=== PATIENT | male | born 1995 | race African-American/Black ===

== ENCOUNTER 2022-01-23 05:58 | Day surgery (SDC) | payer OTHER ==
[2022-01-22 11:43] VITALS: BMI 26.2
[2022-01-23] MEDS ORDERED: Midazolam HCl 2 mg/2 ml Vial ONE (06:45)
[2022-01-23] MEDS ORDERED: fentaNYL Citrate/PF 100 MCG/2 ML SYRINGE ONE (06:45)
[2022-01-23] MEDS ORDERED: CEFAZOLIN 2 GM VIAL ONE (07:23)
[2022-01-23] MEDS ORDERED: Sodium Chloride 0.9% 100 ML ONE (07:23)
[2022-01-23] MEDS ORDERED: Ondansetron PF 4 MG/2 ML Vial ONE (07:53)
[2022-01-23] MEDS ORDERED: Dexamethasone 20 MG/5 ML VIAL ONE (07:53)
[2022-01-23] MEDS ORDERED: PROPOFOL 200 MG/20 ML VIAL ONE (07:53)
[2022-01-23] MEDS ORDERED: Bupivacaine PF 0.5% 30 ML VIAL ONE (08:15)
[2022-01-23] MEDS ORDERED: Fentanyl 100 MCG/2 ML VIAL ONE (09:26)
[2022-01-23] MEDS ORDERED: HYDROcodone/Acetaminophen 5/325 mg Tablet ONE (10:33)
[2022-01-23] MEDS ORDERED: Morphine 2 MG/ML VIAL ONE (11:06)
[2022-01-23] MEDS ORDERED: Ketorolac Tromethamine 30 MG/ML VIAL ONE (11:38)
== END 2022-01-23 12:05 ==
LOC: SDC 05:58
PROVIDERS: ATTEND Orthopaedic Surgery
PROC: 0SSN04Z Reposition Left Metatarsal-Phalangeal Joint with Internal Fixation Device, Open Approach (ICD-10-PCS; principal; 2022-01-23)
DX: M24.475 Recurrent dislocation, left foot (principal); Z79.899 Other long term (current) drug therapy
CPT/HCPCS: 76000; J0690; J1100; J1885; J2250; J2270; J2405; J2704; J3010; J3490; S0020